=== PATIENT | male | born 1980 | race Hispanic/Latino ===

== ENCOUNTER 2024-10-20 07:46 | Emergency (ER) | payer BC ==
[~2024-10-20] VITALS: Ht 170.2 cm; Wt 75.3 kg
[2024-10-20 07:50] VITALS: PULSE 73; RESP 22; TEMP 97.6
[2024-10-20] MEDS: ONDANSETRON HCL INJ 2MG/ML 2ML 2 MG/ML VIAL IV STA (08:06)
[2024-10-20] MEDS: SODIUM CHLORIDE 0.9% 500ML 500 ML IV ONE (08:06)
[2024-10-20] MEDS: MECLIZINE HCL 12.5 MG TAB PO SCH (08:35)
[2024-10-20] MEDS ORDERED: MECLIZINE HCL12.5 MG PO (09:08)
[2024-10-20] MEDS ORDERED: ONDANSETRON ODT4 MG PO (09:09)
[2024-10-20 09:19] VITALS: BP 126/86; PULSE 73; RESP 20; TEMP 98.5; O2SAT 100
== END 2024-10-20 09:20 | disposition home or self-care (01) ==
LOC: FSED 07:57
DX: R42 Dizziness and giddiness (principal); H55.00 Unspecified nystagmus; R80.9 Proteinuria, unspecified; R11.2 Nausea with vomiting, unspecified; R51.9 Headache, unspecified; E78.5 Hyperlipidemia, unspecified
CPT/HCPCS: 70450; 80048; 80307; 81003; 85025; 99283; J2405; J7040; J8597